=== PATIENT | male | born 1960 | race Caucasian/White ===

== ENCOUNTER 2018-10-16 18:17 | Emergency (ER) | payer OTHER ==
[~2018-10-16] VITALS: Ht 170.2 cm; Wt 125.6 kg
[2018-10-16 18:20] VITALS: Ht 170.2 cm; Wt 125.6 kg
[2018-10-16 20:11] VITALS: BP 149/94
== END 2018-10-16 20:11 | disposition home or self-care (01) ==
LOC: ED 18:17
DX: M54.5 Low back pain (principal); G89.29 Other chronic pain; F41.9 Anxiety disorder, unspecified; E78.00 Pure hypercholesterolemia, unspecified
CPT/HCPCS: J1885

== ENCOUNTER 2019-11-13 17:32 | Emergency (ER) | payer OTHER ==
[~2019-11-13] VITALS: Ht 170.2 cm; Wt 124.3 kg
[2019-11-13 17:37] VITALS: Ht 170.2 cm; Wt 124.3 kg
[2019-11-13 18:28] LABS: BASOPHIL % 0.3 % (0-2); PLATELET COUNT 272 x10^3mcL (130-400)
[2019-11-13 18:30] LABS: RED CELL DISTRIBUTION WIDTH 14.6 % (11.5-14.5)
[2019-11-13 18:36] LABS: CALCIUM 9.4 mg/dL (8.5-10.1); CARBON DIOXIDE 27.4 mmol/L (21-32); CREATININE SERUM 1.5 mg/dL (0.7-1.3); POTASSIUM SERUM 3.7 mmol/L (3.5-5.1)
[2019-11-13 18:47] LABS: ALBUMIN 4.4 g/dL (3.4-5.0); BILIRUBIN TOTAL 0.52 mg/dL (0.20-1.00); T4(THYROXINE) 6.6 ug/dL (4.7-13.3); TOTAL PROTEIN, SERUM 8.2 g/dL (6.4-8.2)
[2019-11-13 19:33] LABS: microscopic required? NO
[2019-11-13 19:52] LABS: UA SPECIFIC GRAVITY >=1.030 (1.005-1.035); urine erythrocyte NEGATIVE (NEGATIVE)
[2019-11-13 20:10] LABS: AMPHETAMINE QUAL UR POSITIVE (See below)
[2019-11-13 21:14] VITALS: BP 117/94
== END 2019-11-13 21:14 | disposition home or self-care (01) ==
LOC: ED 17:32
PROVIDERS: Emergency Medicine
DX: R53.1 Weakness (principal); E66.9 Obesity, unspecified; I10 Essential (primary) hypertension; E11.9 Type 2 diabetes mellitus without complications; E78.00 Pure hypercholesterolemia, unspecified; Z68.41 Body mass index [BMI] 40.0-44.9, adult
CPT/HCPCS: 83880; J7030; Q0092